=== PATIENT | female | born 1995 | race Caucasian/White ===

== ENCOUNTER 2021-01-15 23:27 | Emergency (ER) | payer OTHER ==
[~2021-01-15] VITALS: Ht 172.7 cm; Wt 77.1 kg
--- NOTE | 2021-01-15 23:35 | NUR ---
BIBS FOR C/O L SIDED CP 08/27, RADIATING TO L POSTERIOR SHOULDER, WORSE ON DEEP BREATHING X 24 HOURS. PT AMBULATORY TO BED 3, WAS PLACED ON A MONITOR . VSS. AWAITING FOR 'S EVMYRTLE
--- NOTE | 2021-01-15 23:50 | NUR ---
DR ROTH AT [facility] SIDE
[2021-01-15] MEDS ORDERED: KETOROLAC TROMETHAMINE INJ 30 MG/ML VIAL ONE (23:59)
[2021-01-16] MEDS: KETOROLAC TROMETHAMINE INJ 30 MG/ML VIAL IV ONE (00:09)
--- NOTE | 2021-01-16 01:39 | NUR ---
Patient does not wish to proceed with medical care recommended by Dr. Lopez. Patient given information related to possible complications, up to and including , which could occur as a result of leaving the hospital at this time. Patient verbalizes understanding of risks involved due to leaving against medical advice. Patient has signed AMA form.IV removed. Catheter intact and site benign. Pressure and 4x4 applied to site. No bleeding noted.
[2021-01-16 01:40] VITALS: BP 138/88
[2021-01-16 03:35] LABS: RED BLOOD CELL COUNT(AUTO) 4.52 MIL/uL (4.0-5.2); WHITE BLOOD COUNT (AUTO) 10.9 K/uL (4.3-11.0)
[2021-01-16 03:36] LABS: BASOPHILS % (AUTO) 0.3 % (0.0-2.0); EOSINOPHILS % (AUTO) 0.8 % (0.0-6.0); HEMATOCRIT 37 % (33-45); HEMOGLOBIN 12.1 g/dL (11.5-14.8); LYMPHOCYTES # (AUTO) 3.3 K/uL (0.8-4.8); LYMPHOCYTES % (AUTO) 30.5 % (20.0-44.0); MEAN CORPUSCULAR HGB CONC 33 g/dl (31.0-36.0); MEAN CORPUSCULAR VOLUME 81 fL (82-100); MONOCYTES # (AUTO) 0.8 K/uL (0.1-1.30); MONOCYTES % (AUTO) 7.2 % (2.0-12.0); NEUTROPHILS # (AUTO) 6.7 K/uL (1.8-8.9); NEUTROPHILS % (AUTO) 61.2 % (43.0-81.0); PLATELET COUNT (AUTO) 324 K/uL (150-450)
[2021-01-16 03:37] LABS: ALKALINE PHOSPHATASE 65 U/L (46-116); BILIRUBIN,DIRECT 0.1 mg/dL (0.0-0.2); BILIRUBIN,TOTAL 0.2 mg/dL (0.2-1.0); CALCIUM, SERUM 9.3 mg/dL (8.5-10.1); CARBON DIOXIDE 29 mmol/L (21-32); CHLORIDE 103 mmol/L (98-107); CREATININE 0.9 mg/dL (0.6-1.3); GLUCOSE 89 mg/dL (74-106); POTASSIUM 4.1 mmol/L (3.5-5.1); SODIUM SERUM 140 mmol/L (136-145); UREA NITROGEN, BLOOD 15 mg/dL (7-18)
[2021-01-16 03:38] LABS: ALANINE AMINOTRANSFERASE 36 U/L (12-78); ALBUMIN 3.8 g/dL (3.4-5.0); ASPARTATE AMINOTRANSFERASE 20 U/L (15-37); TOTAL PROTEIN, SERUM 8.3 g/dL (6.4-8.2)
[2021-01-16 04:05] LABS: D-DIMER 1.18 mg/L(FEU (0.17-0.50)
== END 2021-01-16 01:40 | disposition left against medical advice (07) ==
LOC: ER 23:33
DX: R07.89 Other chest pain (principal); I10 Essential (primary) hypertension
CPT/HCPCS: 36415; 71045; 80048; 80076; 84484; 85025; 85378; 85730; 93005; 96374; 99285; J1885

== ENCOUNTER 2023-03-02 00:58 | Emergency (ER) | payer OTHER ==
[~2023-03-02] VITALS: Ht 172.7 cm; Wt 77.1 kg
[2023-03-02 02:30] VITALS: BP 131/76; TEMP 98; O2SAT 98
== END 2023-03-02 05:16 | disposition home or self-care (01) ==
LOC: ER 01:01
DX: J02.8 Acute pharyngitis due to other specified organisms (principal); R59.0 Localized enlarged lymph nodes; Z20.822 Contact with and (suspected) exposure to COVID-19
CPT/HCPCS: 86403-TC

== ENCOUNTER 2023-03-17 13:45 | Emergency (ER) | payer OTHER ==
[~2023-03-17] VITALS: Ht 172.7 cm; Wt 74.8 kg
[2023-03-17 13:54] VITALS: BP 144/88; TEMP 97.9
[2023-03-17] MEDS ORDERED: IBUP-1953 PO (14:59)
[2023-03-17 15:38] VITALS: O2SAT 100
== END 2023-03-17 15:40 | disposition home or self-care (01) ==
LOC: ER 13:48
DX: S93.402A Sprain of unspecified ligament of left ankle, initial encounter (principal); S86.012A Strain of left Achilles tendon, initial encounter; W01.0XXA Fall on same level from slipping, tripping and stumbling without subsequent striking against object, initial encounter; Y93.01 Activity, walking, marching and hiking; Y92.89 Other specified places as the place of occurrence of the external cause; Y99.8 Other external cause status
CPT/HCPCS: 73610-TC